=== PATIENT | male | born 1985 | race Caucasian/White ===

== ENCOUNTER 2025-04-08 10:10 | Emergency (ER) | payer OTHER, SELFPAY ==
--- OUTSIDE RECORDS SUMMARY | 2025-04-08 10:13 | XMS_ITS | Clinical Summary ---
Author Organization [employer] [facility] Address [address] [place] [id number] Care Team Providers Care Educational Fundraising Director Name Role Phone Pcp, No Primary Care Provider Unavailabl e Allergies No known active allergies Medications No known medications Active Problems Problem Noted Date Diagnosed Date Insomnia, unspecified 01/19/2010 Adjustment disorder with depressed mood 01/20/20 10 Encounters Date Type Department Care Team Description 02/02/2025 Travel from Last 3 Months Immunizations Immunization Administration Dates Next Due DTP 11/06/1991,01/22/1988,02/04/1987 ,1986,1986 HIB PRP-D (ProHIBIT) 04/20/1989 MMR 10/08/1998,11/11/1987 Oral Polio Vaccine 11/06/1991,01/22/1988, 987,1986 Td (Age >=7 Years) 10/08/1998 Tdap 08/05/2008 Family History Medical History Relation Name Comments Good Health Father Good Health Mother Relation Name Status Comments Father Mother Social History Tobacco Use Types Packs/Day Years Used Date Smoking Tobacco: Former Cigarettes Q uit: 07/16/2012 Smokeless Tobacco: Never Tobacco Cessation:Counseling Given: Yes Comments:quit 07/16/12 Alcohol Use Standard Drinks/Week Comments Yes 0 (1 standard drink = 0.6 oz pur e alcohol) few times per year Social Connections Answer Date Recorded Do you often feel lonely or isolated from those around you? 0 02/02/2025 Financial Resource Strain Answer Date R ecorded Difficulty of Paying Living Expenses 3 02/02/2025 Difficulty of Paying Living Expenses Not on file 02/02/2025 Food Insecurity Answer Date Recorded Do you worry your food will run out before you are able to buy more? 1 02/02/2025 Transportation Needs Answer Date Record ed Does lack of transportation keep you from medica l appointments? 1 02/02/2025 Does lack of transportation keep you from work, meetings or getting things that you need? 1 02/02/2025 Housing Stability Answer Date Recorded What is your housing situation today? 1 02/02/2025 Utilities Answer Date Recorded Do you have trouble paying f or utilities (for example, heat, electricity, water, phone)? 1 02/02/2025 Sex and Gender Information Value Date Recorded Sex Assigned at Not on file Legal Sex Male 5:24 AM BUSINESS CONTINUITY STRATEGY DIRECTOR Gender Identity Not on file Sexual Orientation Not on file Obstetrics History Last Filed Vital Signs Vital Sign Reading Time Taken Comments Blood Pressure 116/71 04/09/2015 6:23 PM CDT Pulse 85 04/09/2015 6:23 PM CDT Temperature 36.7 C (98 F) 04/09/2015 6:23 PM CDT Respiratory Rate - - Oxygen Saturation 99% 04/09/2015 6:23 PM CDT Inhaled Oxygen Concentration - - Weight 58.1 kg (128 lb) 04/09/2015 6:23 PM CDT Height 185.4 cm (6' 1) 04/09/2015 6:23 PM CDT Body Mass Index 16.89 04/09/2015 6:23 PM CDT Plan of Treatment Health Maintenance Due Date Last Done Comments Depression screening for age 12+ 1998 HIV for age 15-65 2001 BMI (ht and wt on same day) for age 18+ 2004 Hepatitis B series for 19+ ( 1 of 3 - 19+ 3-dose series) 2005 HPV series for age 9-45 (1 - 3-dose SCDM series) 2013 Tetanus booster 08/05/2018 08/05/2008, 10/08/1998 Lipids for age 35-44 2021 COVID-19 vaccine series ( - season) 2025 Influenza Vaccine (#1) 2025 RSV vaccine for adults or (1 - 1-dose 75+ series) 2061 Hepatitis C screening for ag e 18-79 Completed 07/27/2012 Pneumococcal series for age 6-49 Aged Out No longer eligible b ased on patient's age to complete this topic Procedures Procedure Name Priority Date/Time Associated Diagnosis Comments ANTI HCV Routine 07/27/2012 1:18 PM BUSINESS CONTINUITY STRATEGY DIRECTOR Elevated LFTs from Last 3 Months or Most Recently Relevant to Health Maintenance Results * ANTI HCV (07/27/2012 1:18 PM BUSINESS CONTINUITY STRATEGY DIRECTOR) ANTI HCV Non-reacti ve [facility] Blood specimen (specimen) BLOOD SPECIMEN / Unknown 07/27/2012 1:18 PM BUSINESS CONTINUITY STRATEGY DIRECTOR 07/27/2012 1:13 PM BUSINESS CONTINUITY STRATEGY DIRECTOR us Max Kamara MD SEND OUTS Final Result [facility] INTERNAL ZIP [id number] [place] [address] [phone] from Last 3 Months or Most Recently Relevant to Health Maintenance Insurance Care Teams Educational Fundraising Director Relationship Specialty Start Date End Date Pcp, No . PCP - General 08/07/13
[2025-04-08 10:29] VITALS: BP 109/73; PULSE 113; RESP 16; TEMP 36.7; O2SAT 96; BMI 16.7
--- NOTE | 2025-04-08 11:32 | ED.GENADULT ---
HPI - General Adult General Date Seen: 04/08/25 Chief complaint: Unspecified Complaint, Adult Stated complaint: Hemorrhoid pain Time Seen by Provider: 04/08/25 10:56 Source: patient Mode of arrival: ambulatory Limitations: no limitations History of Present Illness HPI narrative: Patient is a 39-year-old male presenting to emergency department for hemorrhoid pain. He has a history of hemorrhoids since he has was 17 pain. They usually go away on their own. Has never seen a general surgeon for these. Has only spoke to his primary care provider. States his current hemorrhoid pain has been going on for the past 2 days the nothing helping with his pain. He has not been eating because he is concerned about the pain when he has a bowel movement. The noticing blood on toilet paper yesterday but none since then. States he has been losing weight due to decreased eating. Has tried Sitz baths and ibuprofen without any relief. He has not had any issues with constipation. No other concerns noted. Related Data Home Medications ?Medication ?Instructions ?Recorded ?Confirmed No Known Home Medications 04/08/25 04/08/25 Allergies Allergy/AdvReac Type Severity Reaction Status Date / Time No Known Drug Allergies Allergy Verified 04/08/25 10:28 Review of Systems Narrative: Pertinent systems reviewed and were negative unless stated in HPI Exam Narrative: Exam Narrative: Const: Well-nourished, Well-developed, in mild distress Eyes: PERRL, no conjunctival injection, and symmetrical lids HENT: Atraumatic external nose and ears. Moist mucous membranes. GI: Nontender/Nondistended, No rebound or guarding. : Thrombosed hemorrhoid on the left MSK:Extremities w/o deformity, Normal Active ROM Skin: Warm, Dry. No rashes or lesions. Neuro: Normal Muscle tone, No focal neurological deficits. Psych: Awake, Alert, & Oriented x3. Appropriate mood and affect. Const: Vital Signs, click to edit/add: Vital Signs - 24 hr 04/08/25 10:29 Temperature 98.0 F Pulse Rate [Pulse Oximeter] 113 H Respiratory Rate 16 Blood Pressure [Le ft Upper Arm] 109/73 Pulse Oximetry 96 Oxygen Delivery Me thod Room Air Course Vital Signs Vital signs: Initial Vital Signs Temperature 98.0 F 04/08/25 10:29 Temperature Source Temporal Artery Scan 04/08/25 10:29 Pulse Rate 113 H 04/08/25 10:29 Pulse Rhythm Regular 04/08/25 10:29 Pulse Strength 3+ Normal 04/08/25 10:29 Respiratory Rate 16 04/08/25 10:29 Blood Pressure 109/73 04/08/25 10:29 Blood Pressure Mean 85 04/08/25 10:29 Blood Pressure Position Standing 04/08/25 10:29 Pulse Oximetry 96 04/08/25 10:29 Oxygen Delivery Method Room Air 04/08/25 10:29 Vital Signs Temperature 98.0 F 04/08/25 10:29 Pulse Rate 113 H 04/08/25 10:29 Respiratory Rate 16 04/08/25 10:29 Blood Pressure 109/73 04/08/25 10:29 Pulse Oximetry 96 04/08/25 10:29 Oxygen Delivery Method Room Air 04/08/25 10:29 Temperature 98.0 F 04/08/25 10:29 Pulse Rate 113 H 04/08/25 10:29 Respiratory Rate 16 04/08/25 10:29 Blood Pressure 109/73 04/08/25 10:29 Pulse Oximetry 96 04/08/25 10:29 Oxygen Delivery Method Room Air 04/08/25 10:29 Medications Administered Medications: Discontinued Medications Generic Name Dose Route Start Last Admin Trade Name Freq PRN Reason Stop Dose Admin Oxycodone HCl 5 mg 04/08/25 11:13 04/08/25 11:19 Oxycodone 5 Mg Tablet PO 04/08/25 11:14 5 mg ONCE ONE Administration Medical Decision Making [facility] Narrative Medical decision making narrative: Patient is a 39-year-old male presenting for a thrombosed hemorrhoid on the left side. He does specify this is were all his pain is. Considering it has been under 72 hours and it is a thrombosed hemorrhoid I spoke to him about excision. He is agreeable to this plan. A perianal nerve block was done using a combination of lidocaine and bupivacaine. An elliptical open was done using a scalpel. The clot was removed. Pressure dressing was applied. He tolerated this procedure well. He will be discharged home. Informed to follow-up with general surgery. Discharge Plan Discharge Clinical Impression: External hemorrhoid, thrombosed Patient Disposition: Home, Self-Care Condition: Improved Instructions: Hemorrhoids (ED) Additional Instructions: Remove the pressure dressing in 6-12 hours. At that time start doing Sitz baths every 12 hours. Can also use topical lidocaine or preparation H up with pain control. Make sure to follow-up with either your primary care provider or General surgery within next 24-48 hours to see how it is improving. Either way I do think he likely need follow-up with general surgery due to the repeated nature of your hemorrhoid. [facility] can be contacted at [phone] for the [facility] location. Prescriptions: No Action No Known Home Medications Follow Up/Referrals: Provider,Not a Local [Primary Care Provider, Family Practice] Stand Alone Forms: [facility] Info Instructions
== END 2025-04-08 12:10 | disposition home or self-care (01) ==
PROVIDERS: Emergency Provider Student in an Organized Health Care Education/Training Program
DX: K64.5 Perianal venous thrombosis (principal)
CPT/HCPCS: 99283; A9270

== ENCOUNTER 2025-05-27 06:08 | Day surgery (SDC) | payer OTHER, SELFPAY ==
[2025-05-27] VITALS (13 sets, daily range): BP systolic 114–145; BP diastolic 50–98; PULSE 66–108; RESP 12–18; TEMP 36.1–37.5; O2SAT 95–100; BMI 18.2
[2025-05-27] MEDS: SODIUM CHLORIDE 0.9 % (FLUSH) 10 ML SYRINGE IVF (06:42)
[2025-05-27] MEDS: LACTATED RINGERS 1000 ML 1,000 ML 100 ML IV (06:42)
--- NOTE | 2025-05-27 07:18 | W.PM.H&PU ---
History & Physical Update History & Physical Update H&P Reviewed and patient assessed: No changes noted
[2025-05-27] MEDS: BUPIVACAINE 0.25 %/EPI 1:200K 30 ml INJECTION (07:54)
[2025-05-27] MEDS: BUPIVACAINE LIPOSOME 133 MG/10 ML INJ INFILTRATI (07:54)
[2025-05-27] MEDS: MEPERIDINE 25 MG/ML INJ 12.5 MG IVP (09:04)
--- NOTE | 2025-05-27 09:04 | P.ANES_ITS ---
Anesthesia Charges Start Date/Time Anesthesia Start Date: 05/27/25 Anesthesia Start Time: 07:28 Stop Date/Time Anesthesia Stop Date: 05/27/25 Anesthesia Stop Time: 09:00 Coding CPT Codes CPT Codes: ANESTH ANORECTAL SURGERY - 50473 ([id number]) P1 - NORMAL HEALTHY PATIENT, QK - INTEGRITY ENGINEER 2-4 CNCRNT ANES PROC, QX - MUSIC DEPARTMENT CHAIR SVLiliana W/ MED DIRECTION
--- NOTE | 2025-05-27 09:04 | W.ANESCHARGE ---
Anesthesia Charges Start Date/Time Anesthesia Start Date: 05/27/25 Anesthesia Start Time: 07:28 Stop Date/Time Anesthesia Stop Date: 05/27/25 Anesthesia Stop Time: 09:00 Coding CPT Codes CPT Codes: ANESTH ANORECTAL SURGERY - 34073 ([id number]) P1 - NORMAL HEALTHY PATIENT, QK - ENGLISH HORN PLAYER 2-4 CNCRNT ANES PROC, QX - MICROWAVE REMOTE SENSING SCIENTIST SVLiliana W/ MED DIRECTION
--- NOTE | 2025-05-27 09:11 | P.ANES_ITS ---
Anesthesia Charges Start Date/Time Anesthesia Start Date: 05/27/25 Anesthesia Start Time: 07:28 Stop Date/Time Anesthesia Stop Date: 05/27/25 Anesthesia Stop Time: 09:00 Coding CPT Codes CPT Codes: ANESTH ANORECTAL SURGERY - 58067 ([id number]) P1 - NORMAL HEALTHY PATIENT, QK - FRESH WORK WRAPPER LAYER 2-4 CNCRNT ANES PROC, QX - EDUCATIONAL PROGRAM DIRECTOR SVLiliana W/ MED DIRECTION
--- NOTE | 2025-05-27 09:11 | W.ANESCHARGE ---
Anesthesia Charges Start Date/Time Anesthesia Start Date: 05/27/25 Anesthesia Start Time: 07:28 Stop Date/Time Anesthesia Stop Date: 05/27/25 Anesthesia Stop Time: 09:00 Coding CPT Codes CPT Codes: ANESTH ANORECTAL SURGERY - 97272 ([id number]) P1 - NORMAL HEALTHY PATIENT, QK - ROLL EXAMINER 2-4 CNCRNT ANES PROC, QX - HELICOPTER DISPATCHER SVLiliana W/ MED DIRECTION
--- NOTE | 2025-05-27 09:32 | SUR.PHASEI ---
patient met discharge criteria per anesthesia
[2025-05-27] MEDS: HYDROCODONE-ACETAMIN 5-325 MG 1 TAB PO (09:57)
== END 2025-05-27 11:06 | disposition home or self-care (01) ==
PROVIDERS: PCP Family Medicine; Visit Provider Surgery
PROC: 0DJD8ZZ Inspection of Lower Intestinal Tract, Via Natural or Artificial Opening Endoscopic (ICD-10-PCS; CPT 45378; principal; 2025-05-27 07:30)
DX: K64.8 Other hemorrhoids (principal); K64.4 Residual hemorrhoidal skin tags; Z12.11 Encounter for screening for malignant neoplasm of colon; D12.5 Benign neoplasm of sigmoid colon; D12.7 Benign neoplasm of rectosigmoid junction
CPT/HCPCS: 46260; 00902; A9270; J0666; J2175; J7120

== ENCOUNTER 2025-05-27 06:13 | Outpatient (CLI) | payer OTHER, SELFPAY ==
--- NOTE | 2025-05-27 08:55 | P.GSOP_ITS ---
Operative Note Date of procedure: 05/27/25 Pre-op diagnosis: 1. Symptomatic external and internal hemorrhoids. Post-op diagnosis: 1. Enlarged external and internal hemorrhoids. Type of Procedure: 1. Exam under anesthesia. 2. Two quadrant closed hemorrhoidectomy. Indications: 39-year-old male was seen in clinic initially for evaluation of a thrombosed hemorrhoid. Patient elected to proceed with conservative treatment and his pain eventually subsided. However, he continued to have enlarged hemorrhoidal tissue outside of his anus. He also described that this was the area of painful skin tag. The pain was described as dull after having a bowel movement. Patient described a period of several minutes and up to an hour of severe pain where he had to lie down. Patient was initially taking MiraLax to avoid constipation but then transitioned to fiber supplements. He drinks a lot of water daily. His bowel movements were easy to pass and were daily. Patient felt incomplete emptying of his bowel movements. He has never had a colonoscopy. His mother had colon polyps and his cousin had a large polyp removed in his 40s. On clin ical exam patient had an enlarged left lateral external hemorrhoid that was previously seen as a thrombosed hemorrhoid. The size of this hemorrhoid was significantly reduced but was still prominent and larger than normal. There was also an edematous skin tag associated in continuation with this enlarged hemorrhoid. Patient's anoscopy was limited because of patient's difficult time relaxing his anal sphincter. Given patient's symptoms and his persistent pain as well as incomplete emptying, a colonoscopy and 1 quadrant hemorrhoidectomy was recommended. The procedure was discussed in detail. The risks associated procedure including infection, bleeding, temporary incontinence, and the need for additional procedures were all discussed with the patient. The risks associated colonoscopy including perforation and bleeding were also discussed with the patient, and patient agreed to proceed. Procedure Description: After discussing the risks and benefits of the procedure, the patient signed informed consent.? The operative site was marked and the patient was brought to the operating room and placed on the operating table in supine position.? Care was taken to pad the patient's pressure points.?? The patient was then intubated by anesthesia.??Patient was placed in right lateral decubitus position and we proceeded with colonoscopy. Please see Provation documentation for the procedure details. After the colonoscopy was complete, patient was then placed prone on the procedure table with all pressure points padded. External examination, digital rectal examination, and anoscopic examination were all done and revealed significantly redundant external hemorrhoidal tissue left laterally and internal hemorrhoidal tissue in the left lateral aspects of the anal canal and right posterior laterally. The rest of the internal hemorrhoidal tissue was minimally enlarged. I first proceeded with left lateral 1 quadrant hemorrhoidectomy. An elliptical incision was made with a needle tip electrocautery from the anoderm up into the anal canal just above the dentate line. Careful dissection of the hemorrhoid complex was done in the plane between the internal anal sphincter and the submucosal vascular plexus up to just above the dentate line in each quadrant described above. Having established the proper plane, the hemorrhoidal tissue was then excised with the Ligasure device and sent to Pathology for analysis. Care was taken to preserve mucosa for a tension-free closure. The internal sphincter fibers were visualized at the base of the wound and were intact. The wound was closed in a running locked manner starting at the apex (proximal aspect of elliptical excision) with 3-0 chromic suture, coming out to the anoderm and then running back up in a simple fashion and tying down at the apex. Hemostasis was excellent. Similarly, I proceeded with right lateral internal hemorrhoidectomy. The anoderm was incised with cautery. The hemorrhoidal plexus just above the dentate line was dissected carefully away from the anal sphincter fibers. Having established the proper plane, the hemorrhoidal tissue was then excised with the Ligasure device and sent to Pathology for analysis. Care was taken to preserve mucosa for a tension-free closure. The incision was then closed with there 3-0 Vicryl suture starting at the apex and coming out to the anal derm and then running back in the similar fashion, and tying down at the apex. Pressure was held for hemostasis. A mixture of Marcaine with epinephrine and Exparel was injected for bilateral pudendal nerve block. Sterile gauze and ABD pad were placed over patient's anus, and mesh underwear was placed. All counts were correct at the end of the case. ? The patient was then woken and transported to the recovery area in stable condition. ? The patient tolerated the procedure well. Findings: Enlarged external and internal hemorrhoidal tissue left laterally and internal hemorrhoidal tissue right posterior laterally. Both quadrants were excised. Anesthesia: GETA Surgeon: Lynette Gan MD Estimated blood loss (mL): 5 Additional Specimen Information: 1. Hemorrhoids. Condition: stable Disposition: PACU
--- NOTE | 2025-05-27 08:55 | W.PM.H&PU ---
History & Physical Update History & Physical Update H&P Reviewed and patient assessed: No changes noted
== END 2025-05-27 06:14 | disposition home or self-care (01) ==
LOC: OP CLINIC 06:13
PROVIDERS: PCP Family Medicine; Visit Provider Surgery
DX: Z12.11 Encounter for screening for malignant neoplasm of colon (principal); D12.5 Benign neoplasm of sigmoid colon; D12.7 Benign neoplasm of rectosigmoid junction; D12.8 Benign neoplasm of rectum; K64.9 Unspecified hemorrhoids; Z83.719 Family history of colon polyps, unspecified
CPT/HCPCS: 45385; J1100; J2250; J2405; J2704; J2710; J3010